=== PATIENT | female | born 2000 | race Caucasian/White ===

== ENCOUNTER 2023-10-19 07:15 | Day surgery (SDC) | payer OTHER ==
[~2023-10-19] VITALS: Ht 175.3 cm; Wt 110.6 kg
[~2023-10-19 07:15] MED LIST: AMPH1CAP15 PO; FLUO-290 PO; LAMO5TB. PO; LORA1TAB23 PO
[2023-10-19] MEDS ORDERED: fentaNYL 100 MCG/2 ML INJECTION As Ordered ONE (07:59)
[2023-10-19] MEDS ORDERED: MIDAZOLAM INJ 2MG/2ML VIAL As Ordered ONE (08:00)
[2023-10-19] MEDS ORDERED: ROCURONIUM BROMIDE 50MG/5ML VIAL As Ordered ONE (08:00)
[2023-10-19] MEDS ORDERED: LIDOCAINE 2% 100MG/5ML SDV (FOR ANES.) As Ordered ONE (08:00)
[2023-10-19] MEDS ORDERED: ONDANSETRON 4MG 2ML VIAL As Ordered ONE (08:01)
[2023-10-19] MEDS ORDERED: ACETAMINOPHEN 1000MG 100ML IV BAG As Ordered ONE (08:01)
[2023-10-19] MEDS ORDERED: tumeric PO (08:01)
[2023-10-19] MEDS ORDERED: propofoL 200 MG/20 ML VIAL As Ordered ONE (08:01)
[2023-10-19] MEDS ORDERED: SUGAMMADEX SODIUM 500 MG/5 ML VIAL (BRIDION) As Ordered ONE (08:01)
[2023-10-19] MEDS: LR 1,000 ML IV SCH (08:21)
[2023-10-19] MEDS: PHENYLEPHRINE 0.5% NASAL SPRAY 15 ML As Ordered ONE (08:29)
[2023-10-19] MEDS: MOXIFLOXACIN HCL 400 MG in IV 1 EA IV ONE (08:38)
[2023-10-19] MEDS ORDERED: SUCCINYLCHOLINE 100MG/5ML SYRINGE As Ordered ONE (08:57)
[2023-10-19] MEDS ORDERED: dexmedeTOMIDine (4MCG/ML)200MCG/50ML BTL (PRECEDEX) As Ordered ONE (09:10)
[2023-10-19] MEDS: LIDOCAINE 2% W/ EPINEPHRINE 1.7 ML DENTAL INJ As Ordered ONE (09:15)
[2023-10-19] MEDS ORDERED: oxyCODONE 5MG TAB PO PRN (09:45)
[2023-10-19] MEDS ORDERED: fentaNYL 100 MCG/2 ML INJECTION IV PRN (09:45)
[2023-10-19] MEDS ORDERED: HYDROMORPHONE HCL 0.5 MG/ 0.5 ML SYRINGE IV PRN (09:45)
[2023-10-19] MEDS ORDERED: LR 1,000 ML IV SCH (09:45)
[2023-10-19] MEDS: ONDANSETRON 4MG 2ML VIAL IV PRN (11:00)
[2023-10-19 11:58] VITALS: BP 130/78; TEMP 98.4; O2SAT 97
[2023-10-19] MEDS: METOCLOPRAMIDE INJ 10MG/2ML VIAL IV ONE (12:01)
== END 2023-10-19 12:53 | disposition home or self-care (01) ==
LOC: M SDC 07:15
PROVIDERS: ATTEND Dentist
DX: K02.9 Dental caries, unspecified (principal); F12.10 Cannabis abuse, uncomplicated; F41.9 Anxiety disorder, unspecified; F31.9 Bipolar disorder, unspecified; F43.10 Post-traumatic stress disorder, unspecified; Z79.899 Other long term (current) drug therapy; Z88.0 Allergy status to penicillin; G43.909 Migraine, unspecified, not intractable, without status migrainosus; J45.909 Unspecified asthma, uncomplicated; G47.33 Obstructive sleep apnea (adult) (pediatric); E66.01 Morbid (severe) obesity due to excess calories
CPT/HCPCS: 81025; 88300; D7210; D9223; J0131; J0330; J1100; J2250; J2280; J2405; J2765; J3010